=== PATIENT | female | born 1990 | race Caucasian/White ===

== ENCOUNTER 2019-12-22 10:58 | Emergency (ER) | payer OTHER ==
[~2019-12-22] VITALS: Ht 162.6 cm; Wt 59.9 kg
[2019-12-22 11:04] VITALS: Ht 162.6 cm; Wt 59.9 kg
[2019-12-22 12:10] VITALS: BP 115/80
== END 2019-12-22 12:10 | disposition home or self-care (01) ==
LOC: ED 10:58
DX: S61.313A Laceration without foreign body of left middle finger with damage to nail, initial encounter (principal); W26.9XXA Contact with unspecified sharp object(s), initial encounter; Y93.89 Activity, other specified; Y92.89 Other specified places as the place of occurrence of the external cause; Y99.8 Other external cause status